=== PATIENT | female | born 1990 | race American Indian/Alaskan Native ===

== ENCOUNTER 2016-12-06 03:13 | Emergency (ER) | payer MEDICAID ==
[2016-12-06] MEDS ORDERED: Ondansetron 4 MG/2 ML SDV IVPUSH ONE (03:36)
[2016-12-06] MEDS ORDERED: Sodium Chloride 0.9% 1,000 ML IV ONE (03:36)
--- NOTE | 2016-12-06 03:51 | EDM.PDOC ---
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 Past medical history: As per history of present illness and as reviewed below otherwise noncontributory. Surgical history: As per history of present illness and as reviewed below otherwise noncontributory. Social history: No reported history of drug or alcohol abuse. Family history: As per history of present illness and as reviewed below otherwise noncontributory. Physical exam: HEENT: Atraumatic, normocephalic, pupils reactive, negative for conjunctival pallor or scleral icterus, mucous membranes dry, throat clear, neck supple, nontender, trachea midline. Lungs: Clear to auscultation, breath sounds equal bilaterally, chest nontender. Heart: S1S2, regular, negative for clicks, rubs, or JVD. Abdomen: Soft, nondistended, nontender. heart tones 145 Negative for masses or hepatosplenomegaly. Negative for costovertebral tenderness. Pelvis: Stable nontender. Genitourinary: Deferred. Rectal: Deferred. Extremities: Atraumatic, negative for cords or calf pain. Neurovascular unremarkable. Neuro: Awake, alert, oriented. Cranial nerves II through XII unremarkable. Cerebellum unremarkable. Motor and sensory unremarkable throughout. Exam nonfocal. Diagnostics: CBC CMP amylase lipase UA heart tones Therapeutics: Normal saline 1 L bolus Zofran 4 mg IV Impression: #1 second trimester intrauterine #2 hyperemesis Definitive disposition and diagnosis as appropriate pending reevaluation and review of above. 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: Neurological History: Reports: None Psychiatric History: Reports: None Endocrine/Metabolic History: Reports: None Dermatologic History: Reports: None - Infectious Disease History Infectious Disease History: Reports: Chicken Pox - Past Surgical History HEENT Surgical History: Reports: Adenoidectomy Female Surgical History: Reports: Section Other Musculoskeletal Surgeries/Procedures:: left ankle surgery Social & Family History - Family History Family Medical History: Noncontributory - Tobacco Use Smoking Status *Q: Never Smoker - Recreational Drug Use Recreational Drug Use: No ED ROS GENERAL - Review of Systems Review Of Systems: ROS reveals no pertinent complaints other than HPI. ED EXAM, GENERAL - Physical Exam Exam: See Below (See dictation) Course - Vital Signs Last Recorded V/S: Last Vital Signs Temp 36.9 C 12/06/16 03:21 Pulse 83 12/06/16 03:21 Resp 16 12/06/16 03:21 BP 153/83 H 12/06/16 03:21 Pulse Ox 97 12/06/16 03:21 - Orders/Labs/Meds Orders: Active Orders 24 hr Category Date Time Status AMYLASE [CHEM] Stat Lab 12/06/16 03:36 Ordered CBC WITH AUTO DIFF [HEME] Stat Lab 12/06/16 03:36 Ordered COMPREHENSIVE METABOLIC PN,CMP [CHEM] Stat Lab 12/06/16 03:36 Ordered LIPASE [CHEM] Stat Lab 12/06/16 03:36 Ordered Sodium Chloride 0.9% [Normal Saline] 1,000 ml Med 12/06/16 03:36 Active IV .Bolus Medication Orders Sodium Chloride (Normal Saline) 1,000 mls @ 999 mls/hr IV .Bolus ONE Stop: 12/06/16 04:36 Last Admin: 12/06/16 03:41 Dose: 999 mls/hr Labs: Laboratory Tests 12/06/16 Range/Units 03:24 Urine Color YELLOW Urine Appearance CLEAR Urine pH 6.5 (5.0-8.0) Ur Specific [place] <= 1.005 (1.001-1.035) Urine Protein NEGATIVE (NEGATIVE) mg/dL Urine Glucose (UA) NEGATIVE (NEGATIVE) mg/dL Urine Ketones NEGATIVE (NEGATIVE) mg/dL Urine Occult Blood NEGATIVE (NEGATIVE) Urine Nitrite POSITIVE H (NEGATIVE) Urine Bilirubin NEGATIVE (NEGATIVE) Urine Urobilinogen 0.2 (<2.0) EU/dL Ur Leukocyte Esterase NEGATIVE (NEGATIVE) Urine RBC 0-1 (0-2/HPF) Urine WBC 2-4 (0-5/HPF) Ur Epithelial Cells MANY (NONE-FEW) Urine Bacteria 2+ H (NEGATIVE) Urinalysis Comment SEE COMMENT Meds: Medications Generic Name Dose Route Start Last Admin Trade Name Freq PRN Reason Stop Dose Admin Sodium Chloride 1,000 mls @ 999 mls/hr 12/06/16 03:36 12/06/16 03:41 Normal Saline IV 12/06/16 04:36 999 mls/hr .Bolus ONE Administration Discontinued Medications Generic Name Dose Route Start Last Admin Trade Name Freq PRN Reason Stop Dose Admin Ondansetron HCl 4 mg 12/06/16 03:36 12/06/16 03:41 Zofran IVPUSH 12/06/16 03:37 4 mg ONETIME ONE Administration Departure - Departure Time of Disposition: 03:50 Disposition: Home, Self-Care 01 Condition: good Clinical Impression: Second trimester , Hyperemesis - Discharge Information Forms: ED Department Discharge Additional Instructions: The following information is given to patients seen in the emergency department who are being discharged to home. This information is to outline your options for follow-up care. We provide all patients seen in our emergency department with a follow-up referral. The need for follow-up, as well as the timing and circumstances, are variable depending upon the specifics of your emergency department visit. If you don't have a primary care physician on staff, we will provide you with a referral. We always advise you to contact your personal physician following an emergency department visit to inform them of the circumstance of the visit and for follow-up with them and/or the need for any referrals to a consulting specialist. The emergency department will also refer you to a specialist when appropriate. This referral assures that you have the opportunity for followup care with a specialist. All of these measure are taken in an effort to provide you with optimal care, which includes your followup. Under all circumstances we always encourage you to contact your private physician who remains a resource for coordinating your care. When calling for followup care, please make the office aware that this follow-up is from your recent emergency room visit. If for any reason you are refused follow-up, please contact the [facility] emergency department at and asked to speak to the emergency department charge nurse. Push fluids follow-up primary medical doctor/COMMISSIONS SPECIALIST 24-48 hours return as needed as discussed - My Orders Last 24 Hours: My Active Orders 12/06/16 03:36 AMYLASE [CHEM] Stat CBC WITH AUTO DIFF [HEME] Stat COMPREHENSIVE METABOLIC PN,CMP [CHEM] Stat LIPASE [CHEM] Stat Sodium Chloride 0.9% [Normal Saline] 1,000 ml IV .Bolus - Assessment/Plan Last 24 Hours: My Active Orders 12/06/16 03:36 AMYLASE [CHEM] Stat CBC WITH AUTO DIFF [HEME] Stat COMPREHENSIVE METABOLIC PN,CMP [CHEM] Stat LIPASE [CHEM] Stat Sodium Chloride 0.9% [Normal Saline] 1,000 ml IV .Bolus
[2016-12-06 04:24] LABS: CHLORIDE,CL 111 mmol/L (98-110); SODIUM,NA 138 mmol/L (136-146)
[2016-12-06] MEDS ORDERED: cefTRIAXone 1 GM in Premix Bag 1 BAG IV ONE (04:33)
[2016-12-06 05:30] VITALS: BP 142/80
== END 2016-12-06 05:28 | disposition home or self-care (01) ==
LOC: MW.ED 03:13
DX: O21.0 Mild hyperemesis gravidarum (principal); Z3A.17 17 weeks gestation of pregnancy; Z98.890 Other specified postprocedural states
CPT/HCPCS: 36415; 80053; 81001; 82150; 83690; 85025; 96361; 96365; 96375; 99284; J0696; J2405; J7040

== ENCOUNTER 2016-12-07 19:40 | Emergency (ER) | payer MEDICAID ==
[2016-12-07 19:53] VITALS: BP 151/75
--- NOTE | 2016-12-07 19:59 | EDM.PDOC ---
ED HPI GENERAL MEDICAL PROBLEM - General Chief Complaint: MAILER Problem Stated Complaint: PT BABY NOT MOVING Time Seen by Provider: 12/07/16 19:55 Source of Information: Reports: Patient History Limitations: Reports: No Limitations - History of Present Illness INITIAL COMMENTS - FREE TEXT/NARRATIVE: HISTORY AND PHYSICAL: []26-year-old female presenting at 14 a half weeks . Very concerned that he has not felt the baby move in the last 2 hours. History of Present Illness: [Normal only the last 2 hours that she noticed no movement] Review of Systems: As per history of present illness and below otherwise all systems reviewed and negative. Past medical history: As per history of present illness and as reviewed below otherwise noncontributory. Surgical history: As per history of present illness and as reviewed below otherwise noncontributory. Social history: No reported history of drug or alcohol abuse. Family history: As per history of present illness and as reviewed below otherwise noncontributory. Physical exam: Alert very stoic young woman. Answering questions appropriately HEENT: Atraumatic, normocehpalic, pupils reactive, negative for conjunctival pallor or scleral icterus, mucous membranes moist, throat clear, neck supple, nontender, trachea midline. Lungs: Clear to auscultation, breath sounds equal bilaterally, chest non tender. Heart: S1S2, regular, negative for clicks, rubs, or JVD. Abdomen: Soft, nondistended, nontender. Negative for masses or hepatossplenmegaly. Negative for costovertebral tenderness. Pelvis: Stable nontender. Genitourinary: Deferred. Rectal: Deferred Extremities: Atraumatic, negative for cords or calf pain. Neurovascular unremarkable. Neuro: Awake, alert, oriented. Cranial nerves II through XII unremarkable. Cerebellum unremarkable. Motor and sensory unremarkable throughout. Exam nonfocal. heart tones obtained with Doppler at 153 bpm Diagnostics: [] Therapeutics: [] Impression: [Worried well] Plan: []Explained that some quiet time could mean that baby was sleeping Reassurances were given to mom and to the father All questions were answered Definitive disposition and diagnosis as appropriate pending reevaluation and review of above. 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: Neurological History: Reports: None Psychiatric History: Reports: None Endocrine/Metabolic History: Reports: None Dermatologic History: Reports: None - Infectious Disease History Infectious Disease History: Reports: Chicken Pox - Past Surgical History HEENT Surgical History: Reports: Adenoidectomy Female Surgical History: Reports: Section Other Musculoskeletal Surgeries/Procedures:: left ankle surgery Social & Family History - Family History Family Medical History: Noncontributory - Tobacco Use Smoking Status *Q: Never Smoker - Recreational Drug Use Recreational Drug Use: No ED ROS GENERAL - Review of Systems Review Of Systems: ROS reveals no pertinent complaints other than HPI. ED EXAM - Physical Exam Exam: See Below (See dictation) Course - Vital Signs Last Recorded V/S: Last Vital Signs Temp 36.2 C 12/07/16 19:50 Pulse 55 L 12/07/16 19:50 Resp 18 12/07/16 19:50 BP 151/75 H 12/07/16 19:50 Pulse Ox 97 12/07/16 19:50 Departure - Departure Time of Disposition: 19:58 Disposition: Home, Self-Care 01 Condition: good Clinical Impression: Physically well but worried - Discharge Information Forms: ED Department Discharge Additional Instructions: The following information is given to patients seen in the emergency department who are being discharged to home. This information is to outline your options for follow-up care. We provide all patients seen in our emergency department with a follow-up referral. The need for follow-up, as well as the timing and circumstances, are variable depending upon the specifics of your emergency department visit. If you don't have a primary care physician on staff, we will provide you with a referral. We always advise you to contact your personal physician following an emergency department visit to inform them of the circumstance of the visit and for follow-up with them and/or the need for any referrals to a consulting specialist. The emergency department will also refer you to a specialist when appropriate. This referral assures that you have the opportunity for followup care with a specialist. All of these measure are taken in an effort to provide you with optimal care, which includes your followup. Under all circumstances we always encourage you to contact your private physician who remains a resource for coordinating your care. When calling for followup care, please make the office aware that this follow-up is from your recent emergency room visit. If for any reason you are refused follow-up, please contact the [facility] emergency department at and asked to speak to the emergency department charge nurse. Follow-up with your MAILER as scheduled
== END 2016-12-07 20:05 | disposition home or self-care (01) ==
LOC: MW.ED 19:40
DX: Z34.92 Encounter for supervision of normal pregnancy, unspecified, second trimester (principal); Z87.442 Personal history of urinary calculi; Z98.890 Other specified postprocedural states; Z3A.14 14 weeks gestation of pregnancy
CPT/HCPCS: 99282